=== PATIENT | male | born 1985 | race Caucasian/White ===

== ENCOUNTER 2016-06-04 11:08 | Day surgery (SDC) | payer BC ==
[2016-06-04] MEDS ORDERED: BUPIVACAINE HCL 50 ML VIAL IJ ONE ×2 (12:50)
[2016-06-04] MEDS ORDERED: BACITRACIN ZINC 30 APPL TUBE TP ONE (12:56)
[2016-06-04 13:56] VITALS: BP 120/80
== END 2016-06-04 11:09 | disposition home or self-care (01) ==
LOC: AMB 11:08
PROVIDERS: ATTEND Urology
PROC: 0VBQ3ZZ Excision of Bilateral Vas Deferens, Percutaneous Approach (ICD-10-PCS; principal; 2016-06-04 12:00)
DX: Z30.2 Encounter for sterilization (principal); E66.9 Obesity, unspecified; Z68.31 Body mass index [BMI] 31.0-31.9, adult